=== PATIENT | female | born 1995 | race Asian ===

== ENCOUNTER 2018-03-09 20:44 | Emergency (ER) | payer BC ==
[~2018-03-09] VITALS: Ht 162.6 cm; Wt 70.5 kg
[2018-03-09] MEDS ORDERED: IBUPROFEN 800 MG TABLET PO ONE (22:30)
[2018-03-09] MEDS ORDERED: BACITRACIN 0.9 GM PACKET OINTMENT TP ONE (22:30)
[2018-03-09] MEDS ORDERED: LIDOCAINE 1% 10 ML VIAL INJ ONE (22:30)
[2018-03-09] MEDS ORDERED: POVIDONE-IODINE 10% 15 ML SOLUTION UD TP ONE (22:30)
[2018-03-09] MEDS ORDERED: LIDOCAINE 1%/EPI 1:200,000/PF 10 ML VIAL INJ ONE (22:30)
[2018-03-09] MEDS ORDERED: PERTUSS(ACELL),DIPH,TET VAC/PF 0.5 ML VIAL IM ONE (22:30)
[2018-03-09 23:08] VITALS: BP 140/80
== END 2018-03-09 23:11 | disposition home or self-care (01) ==
LOC: EMS 20:46
DX: S01.112A Laceration without foreign body of left eyelid and periocular area, initial encounter (principal); W50.1XXA Accidental kick by another person, initial encounter; Y93.89 Activity, other specified; Y92.89 Other specified places as the place of occurrence of the external cause; Y99.8 Other external cause status
CPT/HCPCS: 12011; 90471; 90715; 99283; J3490